=== PATIENT | male | born 1960 | race Hispanic/Latino ===

== ENCOUNTER 2018-05-19 07:08 | Emergency (ER) | payer BC ==
[2018-05-19 07:31] VITALS: BMI 28.8
--- NOTE | 2018-05-19 08:42 | ED PDOC ---
Arrival/HPI - General Chief Complaint: Upper Extremity Problem/Injury Time Seen by Provider: 05/19/18 07:55 Historian: Patient - History of Present Illness Narrative History of Present Illness (Text): Patient is a 58 year old with no past medical history presenting to the emergency room with a complaint of right elbow abscess. Patient reports first noticing a small bump on his right elbow 10 days ago. Over the next 10 days, the bump increased in size and developed an area of surrounding erythema. He has a feeling of fullness and has been having difficulty extending his elbow. He decided to come to the emergency room this morning because his elbow began to start draining pus last night. He denies any trauma or puncture wounds to the area. He is an avid hiker and reports a diffuse rash over a month ago which has since resolved. He has no other complaints at this time. Denies fevers, chills, nausea, vomiting, diarrhea, constipation, chest pain, shortness of breath, abdominal pain, numbness or tingling. Time/Duration: < week (10 days) Symptom Onset: Gradual Symptom Course: Worsening Quality: Fullness Past Medical History - Provider Review Nursing Documentation Reviewed: Yes - Infectious Disease Hx of Infectious Diseases: None - Tetanus Immunization Tetanus Immunization: Unknown - Past Medical History Past Medical History: No Previous - Cardiac Hx Cardiac Disorders: No - Pulmonary Hx Respiratory Disorders: No - Neurological Hx Neurological Disorder: No - Renal Hx Renal Disorder: No - Psychiatric Hx Substance Use: No - Anesthesia Hx Anesthesia: No - Suicidal Assessment Feels Threatened In Home Enviroment: No Family/Social History - Physician Review Nursing Documentation Reviewed: Yes Family/Social History: No Known Family HX Smoking Status: Unknown If Ever Smoked Hx Alcohol Use: Yes Hx Substance Use: No Hx Substance Use Treatment: No Allergies/Home Meds Allergies/Adverse Reactions: Allergies seasona Allergy (Uncoded 05/19/18 07:31) CONGESTION Review of Systems - Physician Review All systems were reviewed & negative as marked: Yes - Review of Systems Constitutional: Normal. absent: Fatigue, Fevers Eyes: Normal. absent: Vision Changes ENT: Normal. absent: Sore Throat Respiratory: Normal. absent: SOB, Cough Cardiovascular: Normal. absent: Chest Pain, Palpitations, Edema, CORRAL Gastrointestinal: Normal. absent: Abdominal Pain, Constipation, Diarrhea, Nausea, Vomiting Genitourinary Male: Normal. absent: Dysuria, Frequency Musculoskeletal: Normal Skin: Rash (month ago, since resolved ), Abscess (right elbow), Cellulitis ( right elbow) Neurological: Normal. absent: Headache, Dizziness Endocrine: Normal Hemo/Lymphatic: Normal. absent: Adenopathy Psychiatric: Normal. absent: Anxiety, Depression Physical Exam Vital Signs Reviewed: Yes Vital Signs Temp Pulse Resp BP Pulse Ox 05/19/18 07:32 97.3 F L 74 16 132/85 97 Temperature: Afebrile Blood Pressure: Normal Pulse: Regular Respiratory Rate: Normal Appearance: Positive for: Well-Appearing, Non-Toxic, Comfortable Pain Distress: None Mental Status: Positive for: Alert and Oriented X 3 - Systems Exam Head: Present: Atraumatic, Normocephalic Extroacular Muscles: Present: EOMI Conjunctiva: Present: Normal Mouth: Present: Moist Mucous Membranes Nose (External): Present: Atraumatic Nose (Internal): Present: No Active Bleeding Neck: Present: Normal Range of Motion. No: Meningeal Signs, JVD Respiratory/Chest: Present: Clear to Auscultation, Good Air Exchange. No: Respiratory Distress, Accessory Muscle Use Cardiovascular: Present: Regular Rate and Rhythm, Normal S1, S2. No: Murmurs Upper Extremity: Present: NORMAL PULSES, Tenderness (right elbow), Erythema ( right elbow, 6cm x 4cm base), Neurovascularly Intact, Other (abscess on right elbow 2 cm x 2cm). No: Cyanosis, Edema, Temperature Abnormalties Lower Extremity: Present: Normal Inspection, NORMAL PULSES. No: Edema, CALF TENDERNESS Neurological: Present: GCS=15, Speech Normal, Motor Func Grossly Intact, Normal Sensory Function Skin: Present: Warm, Dry, Normal Color. No: Rashes Psychiatric: Present: Alert, Oriented x 3, Normal Insight, Normal Concentration Medical Decision Making ED Course and Treatment: 05/19/18 08:47 Patient is a 58 year old male with cellulitis and abscess of right elbow. Right elbow abscess 2cm x 2cm wither surrounding erythema/area of induration 6cm x 4cm. I&D procedure completed. Wound culture sent. West Nile and Babesia, IGG and IGM - send out labs. Ordered due to hx of avid hiking and recent diffuse rash. Given first dose of Keflex and prescription for 10 days. Patient is to follow up with primary care physician in 2-3 days. Patient discharged home with instructions for wound care. - Medication Orders Current Medication Orders: Discontinued Medications Cephalexin Monohydrate (Keflex) 500 mg PO STAT STA PRN Reason: Protocol Stop: 05/19/18 08:04 Last Admin: 05/19/18 08:34 Dose: 500 mg Disposition/Present on Arrival - Present on Arrival Any Indicators Present on Arrival: No History of DVT/PE: No History of Uncontrolled Diabetes: No Urinary Catheter: No History of Decub. Ulcer: No History Surgical Site Infection Following: None - Disposition Have Diagnosis and Disposition been Completed?: Yes Diagnosis: Cellulitis and abscess of other specified site Disposition: HOME/ ROUTINE Disposition Time: 08:40 Patient Plan: Discharge Condition: FAIR Discharge Instructions (ExitCare): Cellulitis (ED), Abscess Incision and Drainage (DC) Additional Instructions: Patient is to take antibiotic, Keflex, 1 capsule every 6 hours for the next 10 days. Patient is to complete entire 10 day antibiotic course, even if symptoms resolve. Patient is to follow up with his primary care physician within 2-3 days. If symptoms worsen or do not improve, patient is to call primary care physician or go to nearest emergency facility. Prescriptions: Cephalexin [cephalexin] 500 mg PO Q6H #40 cap
[2018-05-19 09:10] VITALS: BP 132/71; PULSE 77; RESP 18; TEMP 98.6; O2SAT 98
--- NOTE | 2018-05-19 09:20 | PCM.PROC ---
Procedures Attestation:: I certify that I have explained the specified Operation(s) or Procedure(s), risks, benefits and reasonable alternatives to the Patient and/or other person responsible. The opportunity was given to ask questions and all questions answered - Joint Aspiration/Injection Joint #1 Consent Obtained: Verbal Consent Time Out Performed: Yes Side of Body: Right Joint Aspirated: Elbow Ultrasound Guidance Used: No Skin Prep: Povidone-Iodine, Sterile Prep & Drape Local Anesthesia Used: Lidocaine 1%, With Epinepherine Amount of Anesthesia Used: 1 (mL) Needle Size Used: 22 G Fluid Clarity: Purlulent Patient Tolorated Procedure: Well Complications: None Additional comments: Incision and Drainage of Right Elbow. Incision made with 11 blade. 1mL of Lidocaine with Epi used. Purulent drainage removed. Wound cultures collected and sent. Procedure performed under sterile conditions. Patient tolerated procedure well, no acute complications.
== END 2018-05-19 08:45 | disposition home or self-care (01) ==
LOC: ED 07:08
DX: L02.818 Cutaneous abscess of other sites (principal); L03.818 Cellulitis of other sites